=== PATIENT | female | born 1970 | race Asian ===

== ENCOUNTER 2018-04-12 06:49 | Emergency (ER) | payer OTHER ==
[~2018-04-12] VITALS: Ht 160 cm; Wt 79.1 kg
[~2018-04-12 06:49] MED LIST: LISI1TAB5 PO; LISI2.5T PO; LORA1TAB PO; iron PO; provera PO
[2018-04-12 06:52] VITALS: BP 109/74
== END 2018-04-12 07:20 | disposition home or self-care (01) ==
LOC: ED 07:00
DX: J02.0 Streptococcal pharyngitis (principal); I10 Essential (primary) hypertension
CPT/HCPCS: 99283

== ENCOUNTER → 2018-07-02 | Outpatient (CLI) | payer BC, OTHER | END | disposition home or self-care (01) | LOC: CFH 09:22 | PROVIDERS: ATTEND Family Medicine | DX: M77.31 Calcaneal spur, right foot (principal) ==